=== PATIENT | male | born 1950 | race Caucasian/White ===

== ENCOUNTER 2023-06-28 12:10 | Inpatient (IN) ==
[2023-06-28] MEDS ORDERED: morphine 4 MG/ML VIAL IV ONE (12:14)
[2023-06-28 12:30] LABS: POC Calcium, Ionized 1.2 (1.16-1.32); POC Creatinine 1.2 (0.6-1.2); POC Potassium 3.9 (3.3-5.1)
[2023-06-28 13:03] LABS: POC INR 1.1 (0.8-1.2); POC Pro Time 12.6 (11.9-14.5)
[2023-06-28] MEDS ORDERED: TRANEXAMIC ACID 1,000 MG/10 ML VIAL IV ONE (13:10)
[2023-06-28 13:12] LABS: Basophils # (Auto) 0.07 K/mcL (0.00-0.30); Basophils % (Auto) 0.9 % (0.0-2.0); Eosinophils # (Auto) 0.26 K/mcL (0.00-0.70); Eosinophils % (Auto) 3.2 % (0.0-7.0); Hematocrit 46.6 % (40.1-51.0); Hemoglobin 15.2 g/dL (13.7-17.5); Lymphocytes # (Auto) 0.72 K/mcL (1.50-4.80); Mean Cell Volume 90.8 fL (80.0-100.0); Mean Corpuscular HGB Conc 32.6 g/dL (31.0-36.0); Mean Platelet Volume 9.8 fL (8.8-12.5); Monocytes # (Auto) 0.43 K/mcL (0.10-0.90); Monocytes % (Auto) 5.3 % (1.0-12.0); Neutrophils % (Auto) 80.6 % (38.0-78.0); Platelet Count 319 K/mcL (140-440); RBC 5.13 M/mcL (4.63-6.08); Red Cell Distribution Width 12.7 % (11.5-14.5)
[2023-06-28] MEDS ORDERED: ONDANSETRON 4 MG/2 ML VIAL IV ONE (13:14)
[2023-06-28] MEDS ORDERED: ONDANSETRON 4 MG/2 ML VIAL ONE ×2 (13:14→14:50)
[2023-06-28] MEDS ORDERED: TRANEXAMIC ACID 1,000 MG/10 ML VIAL ONE (13:18)
[2023-06-28] MEDS ORDERED: fentaNYL 100 MCG/2 ML VIAL IV ONE ×3 (13:28→14:53)
[2023-06-28 13:35] LABS: POC Calcium, Ionized 1.13 (1.16-1.32); POC Creatinine 1.1 (0.6-1.2); POC Potassium 4.2 (3.3-5.1)
[2023-06-28] MEDS ORDERED: TETANUS IMMUNE GLOBULIN/PF 250 UNIT SYRINGE IM ONE (13:41)
[2023-06-28] MEDS ORDERED: ceFAZolin 1 GM VIAL IV ONE (13:41)
[2023-06-28] MEDS ORDERED: 0.9 % SODIUM CHLORIDE 250 ML IV SCH ×2 (13:45→14:00)
[2023-06-28] MEDS ORDERED: DIPH,PERTUSS(ACELL),TET VAC/PF 0.5 ML SYRINGE IM ONE (13:47)
[2023-06-28] MEDS ORDERED: LIDOCAINE 2% PF 5 ML VIAL ONE (14:50)
[2023-06-28] MEDS ORDERED: SUCCINYLCHOLINE 200 MG/10 ML VIAL IV ONE (14:50)
[2023-06-28] MEDS ORDERED: DEXAMETHASONE 10 MG/ML VIAL ONE (14:50)
[2023-06-28] MEDS ORDERED: PROPOFOL 200 MG/20 ML VIAL IV ONE ×2 (14:51→16:18)
[2023-06-28] MEDS ORDERED: ePHEDrine 50 MG/5 ML SYRINGE (ANEST) IV ONE (15:24)
[2023-06-28] MEDS ORDERED: PHENYLephrine 1 MG/10 ML SYRINGE (ANEST) ONE (15:24)
[2023-06-28] MEDS ORDERED: ROCURONIUM 10 MG/ML ML IV ONE (15:26)
[2023-06-28 15:52] LABS: Alcohol, Blood < 10.0 mg/dL; Alcohol,Blood < 0.010 gm/dL (<0.010)
[2023-06-28] MEDS ORDERED: SUGAMMADEX SODIUM 200 MG/2 ML VIAL IV ONE (16:08)
[2023-06-28] MEDS ORDERED: ONDANSETRON 4 MG/2 ML VIAL IV PRN (16:33)
[2023-06-28] MEDS ORDERED: NALOXONE HCL 0.4 MG/ML VIAL IV PRN (16:33)
[2023-06-28] MEDS ORDERED: IPRATROPIUM/ALBUTEROL 3 ML AMPUL.NEB NEB PRN (16:33)
[2023-06-28] MEDS ORDERED: ACETAMINOPHEN 325 MG TABLET PO PRN (17:01)
[2023-06-28] MEDS ORDERED: SENNOSIDES 1 TABLET PO PRN (17:01)
[2023-06-28] MEDS: fentaNYL 100 MCG/2 ML VIAL IV PRN ×4 (17:10→20:30)
[2023-06-28 18:42] LABS: Basophils # (Auto) 0.04 K/mcL (0.00-0.30); Basophils % (Auto) 0.3 % (0.0-2.0); Eosinophils # (Auto) 0.02 K/mcL (0.00-0.70); Eosinophils % (Auto) 0.1 % (0.0-7.0); Hematocrit 44.5 % (40.1-51.0); Hemoglobin 14.7 g/dL (13.7-17.5); Lymphocytes # (Auto) 0.38 K/mcL (1.50-4.80); Lymphocytes % (Auto) 2.7 % (15.5-49.0); Mean Cell Volume 91.4 fL (80.0-100.0); Mean Platelet Volume 9.8 fL (8.8-12.5); Monocytes # (Auto) 0.44 K/mcL (0.10-0.90); Monocytes % (Auto) 3.1 % (1.0-12.0); Neutrophils % (Auto) 93.2 % (38.0-78.0); Platelet Count 265 K/mcL (140-440); RBC 4.87 M/mcL (4.63-6.08); Red Cell Distribution Width 12.7 % (11.5-14.5); WBC 14.1 K/mcL (4.5-11.0)
[2023-06-28] MEDS: LACTATED RINGERS 1,000 ML IV SCH (19:11)
[2023-06-28] MEDS: LEVOFLOXACIN 500 MG/100 ML BAG IV SCH (19:20)
[2023-06-28] MEDS: CYCLOBENZAPRINE 10 MG TABLET PO PRN (19:38)
[2023-06-28] MEDS: DOCUSATE SODIUM 100 MG CAPSULE PO SCH (21:22)
[2023-06-28] MEDS ORDERED: ACETAMINOPHEN 1,000 MG/100 ML BAG IV ONE (21:30)
[2023-06-28] MEDS: ACETAMINOPHEN 1,000 MG/100 ML BAG IV SCH (21:31)
[2023-06-28] MEDS ORDERED: 0.9 % SODIUM CHLORIDE 10 ML SYRINGE IV SCH (22:00)
[2023-06-28] MEDS ORDERED: KETOROLAC 15 MG/ML VIAL ONE (23:55)
[2023-06-28] MEDS: 0.9 % SODIUM CHLORIDE 10 ML SYRINGE IV SCH (23:57)
[2023-06-28] MEDS: KETOROLAC 15 MG/ML VIAL IV SCH (23:57)
[2023-06-29] MEDS: fentaNYL 100 MCG/2 ML VIAL IV PRN ×8 (00:04→23:08)
[2023-06-29] MEDS: ONDANSETRON 4 MG/2 ML VIAL IV PRN ×2 (00:19→10:05)
[2023-06-29] MEDS ORDERED: ACETAMINOPHEN 1,000 MG/100 ML BAG IV ONE (02:44)
[2023-06-29] MEDS: ACETAMINOPHEN 1,000 MG/100 ML BAG IV SCH ×3 (02:45→17:40)
[2023-06-29] MEDS: LACTATED RINGERS 1,000 ML IV SCH ×2 (04:08→14:41)
[2023-06-29] MEDS: CYCLOBENZAPRINE 10 MG TABLET PO PRN ×2 (04:11→20:08)
[2023-06-29] MEDS ORDERED: KETOROLAC 15 MG/ML VIAL ONE (05:12)
[2023-06-29] MEDS: KETOROLAC 15 MG/ML VIAL IV SCH ×3 (05:16→19:42)
[2023-06-29] MEDS: 0.9 % SODIUM CHLORIDE 10 ML SYRINGE IV SCH ×3 (06:12→20:56)
[2023-06-29 06:50] LABS: ALT/SGPT 21 U/L (<40); AST/SGOT 26 U/L (<40); Albumin 3.7 gm/dL (3.2-5.2); Albumin/Globulin Ratio 1.7 (1.0-2.3); Alkaline Phosphatase 56 U/L (39-117); Bilirubin,Direct < 0.2 mg/dL (0-0.3); Bilirubin,Total 0.5 mg/dL (0.1-1.0); Blood Urea Nitrogen 19 mg/dL (8-23); Calcium 8.9 mg/dL (8.6-10.4); Carbon Dioxide 23 mmol/L (22-30); Chloride 101 mmol/L (96-108); Globulin 2.2 gm/dL (2.2-3.7); Glomerular Filtration Rate 75; Glucose 136 mg/dL (70-105); Lactate Dehydrogenase 200 U/L (135-225); Phosphorous 3.9 mg/dL (2.5-4.5); Triglycerides 75 mg/dL (<150); Uric Acid 4.4 mg/dL (2.5-8.0)
[2023-06-29] MEDS: PANTOPRAZOLE 40 MG TABLET PO SCH (08:07)
[2023-06-29] MEDS: DOCUSATE SODIUM 100 MG CAPSULE PO SCH ×2 (08:07→20:08)
[2023-06-29] MEDS: LEVOFLOXACIN 500 MG/100 ML BAG IV SCH (08:42)
[2023-06-29 08:52] LABS: Basophils # (Auto) 0.01 K/mcL (0.00-0.30); Basophils % (Auto) 0.1 % (0.0-2.0); Eosinophils # (Auto) 0 K/mcL (0.00-0.70); Eosinophils % (Auto) 0 % (0.0-7.0); Hematocrit 38.6 % (40.1-51.0); Hemoglobin 12.8 g/dL (13.7-17.5); Lymphocytes # (Auto) 0.61 K/mcL (1.50-4.80); Lymphocytes % (Auto) 4.9 % (15.5-49.0); Mean Cell Volume 90.4 fL (80.0-100.0); Mean Corpuscular HGB Conc 33.2 g/dL (31.0-36.0); Mean Platelet Volume 10.3 fL (8.8-12.5); Monocytes # (Auto) 0.65 K/mcL (0.10-0.90); Monocytes % (Auto) 5.2 % (1.0-12.0); Neutrophils % (Auto) 89.5 % (38.0-78.0); Platelet Count 277 K/mcL (140-440); RBC 4.27 M/mcL (4.63-6.08); Red Cell Distribution Width 13.1 % (11.5-14.5); WBC 12.5 K/mcL (4.5-11.0)
[2023-06-29] MEDS: oxyCODONE IR 5 MG TABLET PO PRN ×4 (09:39→23:07)
[2023-06-30] MEDS: ACETAMINOPHEN 1,000 MG/100 ML BAG IV SCH ×3 (00:54→11:40)
[2023-06-30] MEDS: LACTATED RINGERS 1,000 ML IV SCH ×3 (01:07→22:21)
[2023-06-30] MEDS: CYCLOBENZAPRINE 10 MG TABLET PO PRN ×3 (02:38→19:27)
[2023-06-30] MEDS: oxyCODONE IR 5 MG TABLET PO PRN ×5 (02:39→20:40)
[2023-06-30] MEDS: fentaNYL 100 MCG/2 ML VIAL IV PRN ×6 (04:52→22:21)
[2023-06-30] MEDS: 0.9 % SODIUM CHLORIDE 10 ML SYRINGE IV SCH ×3 (05:24→20:40)
[2023-06-30 06:25] LABS: Basophils # (Auto) 0.03 K/mcL (0.00-0.30); Basophils % (Auto) 0.4 % (0.0-2.0); Eosinophils # (Auto) 0.15 K/mcL (0.00-0.70); Eosinophils % (Auto) 1.9 % (0.0-7.0); Hematocrit 36.4 % (40.1-51.0); Hemoglobin 11.6 g/dL (13.7-17.5); Lymphocytes # (Auto) 1.05 K/mcL (1.50-4.80); Lymphocytes % (Auto) 13.6 % (15.5-49.0); Mean Cell Volume 93.8 fL (80.0-100.0); Mean Corpuscular HGB Conc 31.9 g/dL (31.0-36.0); Mean Platelet Volume 10.2 fL (8.8-12.5); Monocytes # (Auto) 0.56 K/mcL (0.10-0.90); Monocytes % (Auto) 7.2 % (1.0-12.0); Neutrophils % (Auto) 76.5 % (38.0-78.0); Platelet Count 218 K/mcL (140-440); RBC 3.88 M/mcL (4.63-6.08); Red Cell Distribution Width 13.2 % (11.5-14.5); WBC 7.7 K/mcL (4.5-11.0)
[2023-06-30 06:51] LABS: ALT/SGPT 16 U/L (<40); AST/SGOT 18 U/L (<40); Albumin 3.2 gm/dL (3.2-5.2); Albumin/Globulin Ratio 1.5 (1.0-2.3); Alkaline Phosphatase 47 U/L (39-117); Bilirubin,Direct < 0.2 mg/dL (0-0.3); Bilirubin,Total 0.3 mg/dL (0.1-1.0); Blood Urea Nitrogen 19 mg/dL (8-23); Calcium 8.6 mg/dL (8.6-10.4); Carbon Dioxide 28 mmol/L (22-30); Chloride 104 mmol/L (96-108); Globulin 2.2 gm/dL (2.2-3.7); Glomerular Filtration Rate 67; Glucose 91 mg/dL (70-105); Lactate Dehydrogenase 157 U/L (135-225); Phosphorous 2.4 mg/dL (2.5-4.5); Triglycerides 127 mg/dL (<150)
[2023-06-30] MEDS: DOCUSATE SODIUM 100 MG CAPSULE PO SCH ×2 (08:13→19:27)
[2023-06-30] MEDS: PANTOPRAZOLE 40 MG TABLET PO SCH (08:13)
[2023-06-30] MEDS: LEVOFLOXACIN 500 MG/100 ML BAG IV SCH (09:11)
[2023-06-30] MEDS: ACETAMINOPHEN 1,000 MG/100 ML BAG IV PRN (19:29)
[2023-07-01] MEDS: oxyCODONE IR 5 MG TABLET PO PRN ×6 (00:13→21:40)
[2023-07-01] MEDS: ACETAMINOPHEN 1,000 MG/100 ML BAG IV PRN (02:30)
[2023-07-01] MEDS: CYCLOBENZAPRINE 10 MG TABLET PO PRN ×2 (04:20→17:44)
[2023-07-01] MEDS: 0.9 % SODIUM CHLORIDE 10 ML SYRINGE IV SCH ×3 (05:13→21:40)
[2023-07-01 06:25] LABS: Basophils # (Auto) 0.07 K/mcL (0.00-0.30); Basophils % (Auto) 1.4 % (0.0-2.0); Eosinophils # (Auto) 0.47 K/mcL (0.00-0.70); Eosinophils % (Auto) 9.2 % (0.0-7.0); Hematocrit 37.2 % (40.1-51.0); Hemoglobin 11.3 g/dL (13.7-17.5); Lymphocytes # (Auto) 1.03 K/mcL (1.50-4.80); Lymphocytes % (Auto) 20.2 % (15.5-49.0); Mean Cell Volume 97.1 fL (80.0-100.0); Mean Corpuscular HGB Conc 30.4 g/dL (31.0-36.0); Mean Platelet Volume 10.3 fL (8.8-12.5); Monocytes # (Auto) 0.47 K/mcL (0.10-0.90); Monocytes % (Auto) 9.2 % (1.0-12.0); Neutrophils % (Auto) 59.2 % (38.0-78.0); Platelet Count 224 K/mcL (140-440); RBC 3.83 M/mcL (4.63-6.08); Red Cell Distribution Width 13.2 % (11.5-14.5); WBC 5.1 K/mcL (4.5-11.0)
[2023-07-01 07:08] LABS: ALT/SGPT 15 U/L (<40); AST/SGOT 18 U/L (<40); Albumin 3.2 gm/dL (3.2-5.2); Albumin/Globulin Ratio 1.5 (1.0-2.3); Alkaline Phosphatase 48 U/L (39-117); Bilirubin,Direct < 0.2 mg/dL (0-0.3); Bilirubin,Total 0.2 mg/dL (0.1-1.0); Blood Urea Nitrogen 18 mg/dL (8-23); Calcium 8.5 mg/dL (8.6-10.4); Carbon Dioxide 29 mmol/L (22-30); Chloride 100 mmol/L (96-108); Globulin 2.1 gm/dL (2.2-3.7); Glomerular Filtration Rate 67; Glucose 83 mg/dL (70-105); Lactate Dehydrogenase 172 U/L (135-225); Phosphorous 3.6 mg/dL (2.5-4.5); Triglycerides 133 mg/dL (<150); Uric Acid 4.3 mg/dL (2.5-8.0)
[2023-07-01] MEDS: PANTOPRAZOLE 40 MG TABLET PO SCH (08:03)
[2023-07-01] MEDS: DOCUSATE SODIUM 100 MG CAPSULE PO SCH ×2 (08:03→21:40)
[2023-07-01] MEDS: LACTATED RINGERS 1,000 ML IV SCH (08:04)
[2023-07-01] MEDS: fentaNYL 100 MCG/2 ML VIAL IV PRN ×3 (10:36→17:45)
[2023-07-01] MEDS: LEVOFLOXACIN 500 MG/100 ML BAG IV SCH (10:41)
[2023-07-01] MEDS: BUTALB/ACETAMINOPHEN/CAFFEINE 1 TABLET PO PRN (21:40)
[2023-07-02] MEDS: oxyCODONE IR 5 MG TABLET PO PRN ×4 (02:21→16:10)
[2023-07-02] MEDS: CYCLOBENZAPRINE 10 MG TABLET PO PRN ×2 (02:23→11:55)
[2023-07-02] MEDS: 0.9 % SODIUM CHLORIDE 10 ML SYRINGE IV SCH ×3 (05:15→20:21)
[2023-07-02] MEDS: PANTOPRAZOLE 40 MG TABLET PO SCH (07:15)
[2023-07-02] MEDS: fentaNYL 100 MCG/2 ML VIAL IV PRN ×3 (07:15→16:18)
[2023-07-02 07:26] LABS: ALT/SGPT 19 U/L (<40); AST/SGOT 21 U/L (<40); Albumin 3.3 gm/dL (3.2-5.2); Albumin/Globulin Ratio 1.3 (1.0-2.3); Alkaline Phosphatase 65 U/L (39-117); Bilirubin,Direct < 0.2 mg/dL (0-0.3); Bilirubin,Total 0.3 mg/dL (0.1-1.0); Blood Urea Nitrogen 16 mg/dL (8-23); Calcium 8.4 mg/dL (8.6-10.4); Carbon Dioxide 29 mmol/L (22-30); Chloride 98 mmol/L (96-108); Globulin 2.6 gm/dL (2.2-3.7); Glomerular Filtration Rate 75; Glucose 80 mg/dL (70-105); Lactate Dehydrogenase 207 U/L (135-225); Phosphorous 4.2 mg/dL (2.5-4.5); Triglycerides 205 mg/dL (<150); Uric Acid 4.8 mg/dL (2.5-8.0)
[2023-07-02] MEDS: LEVOFLOXACIN 500 MG/100 ML BAG IV SCH (10:08)
[2023-07-02] MEDS: DOCUSATE SODIUM 100 MG CAPSULE PO SCH ×2 (10:08→20:16)
[2023-07-02] MEDS: ACETAMINOPHEN 1,000 MG/100 ML BAG IV PRN (13:47)
[2023-07-02] MEDS: HYDROcodone/APAP 10/325MG TABLET PO PRN (20:16)
[2023-07-02] MEDS: methylPREDNISolone SOD SUCC 125 MG/2 ML VIAL IV SCH (20:17)
[2023-07-03] MEDS: HYDROcodone/APAP 10/325MG TABLET PO PRN ×4 (04:03→16:40)
[2023-07-03] MEDS: 0.9 % SODIUM CHLORIDE 10 ML SYRINGE IV SCH ×2 (04:03→14:55)
[2023-07-03] MEDS: BUTALB/ACETAMINOPHEN/CAFFEINE 1 TABLET PO PRN ×2 (05:30→16:39)
[2023-07-03] MEDS: PANTOPRAZOLE 40 MG TABLET PO SCH (08:06)
[2023-07-03] MEDS: DOCUSATE SODIUM 100 MG CAPSULE PO SCH (08:06)
[2023-07-03] MEDS: LEVOFLOXACIN 500 MG/100 ML BAG IV SCH (09:54)
[2023-07-03] MEDS: methylPREDNISolone SOD SUCC 125 MG/2 ML VIAL IV SCH (09:54)
== END 2023-07-03 16:45 | disposition home or self-care (01) ==
LOC: ED 12:10 → SUR 14:38 → ICU 17:38 → MEDSUR 07-01 16:19
PROVIDERS: ADMIT Family Medicine Adult Medicine; ATTEND Family Medicine Adult Medicine
PROC: IDWOUND (2023-06-28 15:15)